=== PATIENT | male | born 1970 | race Caucasian/White ===

== ENCOUNTER 2017-06-13 22:18 | Emergency (ER) | payer BC ==
[2017-06-13] MEDS ORDERED: HYDROmorphone 2 MG/ML Syringe SUBCUT ONE (22:29)
[2017-06-13] MEDS ORDERED: Morphine 15 MG Tab ONE (22:30)
--- NOTE | 2017-06-13 22:34 | EDM.PDOC ---
ED HPI GENERAL MEDICAL PROBLEM - General Chief Complaint: Upper Extremity Injury/Pain Stated Complaint: RIGHT ARM PAIN Time Seen by Provider: 06/13/17 22:25 Source of Information: Reports: Patient, Family History Limitations: Reports: No Limitations - History of Present Illness INITIAL COMMENTS - FREE TEXT/NARRATIVE: According to patient he has had right rotator cuff re;pair done on 06/11/[address] [facility] by Dr. Mcneill. Apparently he has had pain in his shoulder since then . he has been taking vicodin 1-2 tablets every 6hrs as his pain is not better. He rates his pain at 9/10 since the surgery. His shoulder hurts when he is sitting or lying down and is constant. No excessive swelling or redness around the shoulder. As he has taken 17 pills and has only 3 more pain pills, his spouse did get him in for stronger pain medication and evaluation. No fever or chills. No nausea , vomiting or weakness. - Related Data Allergies Allergy/AdvReac Type Severity Reaction Status Date / Time No Known Allergies Allergy Verified 06/13/17 22:19 Home Meds: Home Meds Acetaminophen/oxyCODONE [Percocet 325-5 MG] 2 each PO Q4HR 06/13/17 [History] Review of Systems - Review of Systems Review Of Systems: See Below Constitutional: Denies: Chills, Fever Eyes: Denies: Blurred Vision Ears: Denies: Dizziness Nose: Denies: Congestion Mouth/Throat: Denies: Painful Swallowing Respiratory: Denies: Cough, Sputum Cardiovascular: Denies: Chest Pain, Syncope GI/Abdominal: Denies: Abdominal Pain, Nausea, Vomiting Musculoskeletal: Reports: Shoulder Pain (rigth ). Denies: Back Pain, Foot Pain Skin: Denies: Pruritis, Rash Neurological: Denies: Dizziness, Headache, Numbness, Tingling, Weakness ED EXAM, GENERAL - Physical Exam Exam: See Below Exam Limited By: No Limitations General Appearance: Alert, WD/WN, Mild Distress Eye Exam: Bilateral Eye: EOMI, PERRL Ears: Normal External Exam, Normal Canal, Hearing Grossly Normal, Normal TMs Ear Exam: Bilateral Ear: Auricle Normal, Canal Normal, TM normal Nose: Normal Inspection, Normal Mucosa, No Blood Throat/Mouth: Normal Inspection, Normal Lips, Normal Teeth, Normal Gums, Normal Oropharynx, Normal Voice, No Airway Compromise Head: Atraumatic, Normocephalic Neck: Normal Inspection, Supple, Non-Tender, Full Range of Motion Respiratory/Chest: No Respiratory Distress, Lungs Clear, Normal Breath Sounds, No Accessory Muscle Use, Chest Non-Tender Cardiovascular: Normal Peripheral Pulses, Regular Rate, Rhythm, No Edema, No Gallop, No JVD, No Murmur, No Rub Extremities: Other (Right shoulder: tehre is very minimal swellling around the shoulder joint, there is no erythema, mild warmth to touch. very tender to palp; ation of mary shoulder. The right arm is fixed in splint. Able to move his fingers without discomfort.) Course - Vital Signs Text/Narrative:: I does have some swelling of the right shoulder which probably is secondary to inflammation. his CBC done today does show normal white count. He did receive dilaudid 2mg subcutaneous in the emergency room, which should help with pain tonight. I have advised jesus's to call Dr. Mcneill's office in the morning for pain management, and if any further workup necessary. Last Recorded V/S: Last Vital Signs Temp 95.9 F 06/13/17 22:41 Pulse 58 L 06/13/17 22:41 Resp 18 06/13/17 22:41 BP 115/72 06/13/17 22:41 Pulse Ox 100 06/13/17 22:41 - Orders/Labs/Meds Labs: Laboratory Tests 06/13/17 Range/Units 22:41 WBC 9.8 (4.0-11.0) K/uL RBC 4.75 (4.50-6.50) M/uL Hgb 14.6 (13.0-18.0) g/dL Hct 41.8 (40.0-54.0) % MCV 88 (76-96) fL MCH 30.7 (27.0-32.0) pg MCHC 34.9 (31.0-35.0) g/dL RDW 12.8 (11.0-16.0) % Plt Count 250 (150-400) K/uL MPV 10.3 H (6.0-10.0) fL Neut % (Auto) 53.7 (45.0-70.0) % Lymph % (Auto) 29.5 (20.0-40.0) % [place] % (Auto) 13.9 H (3.0-10.0) % Eos % (Auto) 2.7 (1.0-5.0) % Baso % (Auto) 0.2 (0.0-0.5) % Neut # (Auto) 5.25 (2.00-7.50) K/uL Lymph # (Auto) 2.88 (1.50-4.00) K/uL [place] # (Auto) 1.36 H (0.20-0.80) K/uL Eos # (Auto) 0.26 (0.04-0.40) K/uL Baso # (Auto) 0.02 (0.02-0.10) K/uL Meds: Medications Discontinued Medications Generic Name Dose Route Start Last Admin Trade Name Freq PRN Reason Stop Dose Admin Hydromorphone HCl 2 mg 06/13/17 22:29 06/13/17 22:24 Dilaudid SUBCUT 06/13/17 22:30 2 mg ONETIME ONE Administration Departure - Departure Time of Disposition: 11:00 Disposition: Home, Self-Care 01 Condition: Fair Clinical Impression: Right shoulder pain - Discharge Information Forms: ED Department Discharge Additional Instructions: He does have some swelling of the right shoulder which probably is secondary to inflammation. his CBC done today does show normal white count. He did receive dilaudid 2mg subcutaneous in the emergency room, which should help with pain tonight.I have sent him home on MS contin 15mg to be taken at 12 and repeat in 4 hrs if still in pain. If the pain improve with dilaudid injection advised to hold off on MS Contin. I have advised jesus's to call Dr. Mcneill's office in the morning for pain management, and if any further workup necessary. - Problem List & Annotations (1) Right shoulder pain SNOMED Code(s): 74101750 Code(s): M25.511 - PAIN IN RIGHT SHOULDER Status: Acute - Problem List Review Problem List Initiated/Reviewed/Updated: Yes - Assessment/Plan Assessment:: right shoulder pain Post op s/p rotator cuff repair Plan: He does have some swelling of the right shoulder which probably is secondary to inflammation. his CBC done today does show normal white count. He did receive dilaudid 2mg subcutaneous in the emergency room, which should help with pain tonight.I have sent him home on MS contin 15mg to be taken at 12 and repeat in 4 hrs if still in pain. If the pain improve with dilaudid injection advised to hold off on MS Contin. I have advised jesus's to call Dr. Mcneill's office in the morning for pain management, and if any further workup necessary.
[2017-06-13] MEDS ORDERED: HYDROmorphone 2 MG/ML Syringe IM ONE (23:02)
== END 2017-06-13 23:24 | disposition home or self-care (01) ==
LOC: LB.ED 22:18
DX: M25.511 Pain in right shoulder (principal); Z98.890 Other specified postprocedural states
CPT/HCPCS: 36415; 85025; 96372; 99283; A9270; J1170

== ENCOUNTER 2019-01-05 08:42 | Day surgery (SDC) | payer BC ==
[~2019-01-05 08:42] MED LIST: Metoclopramide 10 MG/2 ML SDV IV PRN; Sodium Chloride 0.9% 1,000 ML IV SCH
[2019-01-05] MEDS ORDERED: Propofol 200 MG/20 ML SDV ONE (11:15)
--- NOTE | 2019-01-05 15:27 | OR ---
DATE OF OPERATION: 01/05/2019 PREOPERATIVE DIAGNOSIS: Family history of colon cancer and personal history of polyps. POSTOPERATIVE DIAGNOSIS: Family history of colon cancer and personal history of polyps. PROCEDURE: Colonoscopy with polypectomy. ANESTHESIA: MAC. ESTIMATED BLOOD LOSS: Minimal. COMPLICATIONS: None. INDICATION FOR THE PROCEDURE: The patient is a 48-year-old male who has a family history of colon cancer in his sister who was less than 50. The patient has also had a colonoscopy approximately 10 years ago and approximately 5 polyps were found at that time. The patient denies any change in bowel habits since that time. DESCRIPTION OF PROCEDURE: Informed consent was obtained from the patient. The patient was taken to the operating room and placed on the table in left lateral decubitus position. Monitored anesthesia care was administered. Digital rectal exam was performed and was normal. Colonoscope then advanced through the anus and directed toward the cecum. Cecum was reached and identified by appendiceal orifice and ileocecal valve. Colonoscope was then slowly withdrawn. He did have a small sessile polyp in the proximal ascending colon which was removed by cold forceps polypectomy. No additional polyps. No areas of ischemia or inflammation. No masses. No diverticula were seen on the way out. The colonoscope was slowly withdrawn. Retroflexion performed in the rectum was also otherwise unremarkable. Colonoscope was then withdrawn. The patient tolerated the procedure well and was brought to recovery room in good condition. FINDINGS: Proximal ascending colon polyp. RECOMMENDATIONS: We will follow up on pathology. Otherwise, would recommend repeat surveillance colonoscopy in 5 years due to family history and personal history of polyps. GUILLERMINA /[id number]
== END 2019-01-05 13:00 | disposition home or self-care (01) ==
LOC: LB.SDS 08:42
PROVIDERS: ATTEND Surgery
DX: Z12.11 Encounter for screening for malignant neoplasm of colon (principal); D12.2 Benign neoplasm of ascending colon; Z86.010 Personal history of colon polyps; Z80.0 Family history of malignant neoplasm of digestive organs; F17.200 Nicotine dependence, unspecified, uncomplicated
CPT/HCPCS: 45380; 88305; J2704; J7030

== ENCOUNTER 2019-07-05 08:19 | Emergency (ER) | payer BC ==
--- NOTE | 2019-07-05 09:09 | PCM.HP.2 ---
H&P History of Present Illness - General Date of Service: 07/05/19 Source of Information: Patient History Limitations: Reports: No Limitations - History of Present Illness Initial Comments - Free Text/Narative: This is a 49yo M here for severe low back injury with lifting. He all of a sudden fell over and unable to stand without pain in the lumbar region. He has not had any back injuries in the past. Patient states he is not in pain when not on his feet and is ok sitting but when he places mild pressure with standing he feels the severe lumbar pain. Onset of Symptoms: Reports: Sudden Duration of Symptoms: Reports: Constant Quality: Reports: Pressure, Sharp Severity: Severe Improves with: Reports: Rest Worsens with: Reports: Other (standing and walking) Associated Symptoms: Reports: No Other Symptoms Bilateral Lower Back Pain Score (Numeric/FACES): 10 - Related Data Allergies/Adverse Reactions: Allergies Allergy/AdvReac Type Severity Reaction Status Date / Time No Known Allergies Allergy Verified 01/05/19 08:59 Home Medications: Home Meds NK [No Known Home Meds] 01/05/19 [History] Past Medical History Gastrointestinal History: Reports: Irritable Bowel Syndrome - Past Surgical History Musculoskeletal Surgical History: Reports: Arthroscopic Knee, Other (See Below) Other Musculoskeletal Surgeries/Procedures:: ligament repair to both knees; right rotator cuff repair Social & Family History - Family History Family Medical History: Noncontributory Oncologic: Reports: Liver, Metastatic - Caffeine Use Caffeine Use: Reports: Coffee H&P Review of Systems - Review of Systems: Review Of Systems: ROS reveals no pertinent complaints other than HPI. Exam - Exam Exam: See Below - Vital Signs Vital Signs: Last Vital Signs Temp 36.6 C 07/05/19 09:03 Pulse 71 07/05/19 09:03 Resp 16 07/05/19 09:03 BP 137/91 H 07/05/19 09:03 Pulse Ox 98 07/05/19 09:03 Weight: 87.09 kg - Exam General: Alert, Oriented, Cooperative HEENT: PERRLA, Conjunctiva Clear, EACs Clear, EOMI Neck: Supple, Trachea Midline Lungs: Clear to Auscultation, Normal Respiratory Effort Cardiovascular: Regular Rate, Regular Rhythm GI/Abdominal Exam: Normal Bowel Sounds, Soft, Non-Tender Back Exam: Paraspinal Tenderness, Vertebral Tenderness Extremities: Normal Inspection, Normal Range of Motion Skin: Warm, Dry, Intact - Problem List (1) Lumbago SNOMED Code(s): 680608583 ICD Code: M54.5 - LOW BACK PAIN Status: Acute Qualifiers: Chronicity: acute Back pain laterality: bilateral Sciatica presence: without sciatica Qualified Code(s): M54.5 - Low back pain (2) Acute lumbar myofascial strain SNOMED Code(s): 699938616, 14365545, 514167535 ICD Code: S39.012A - STRAIN OF MUSCLE, FASCIA AND TENDON OF LOWER BACK, INIT Status: Acute Priority: High Qualifiers: Encounter type: initial encounter Qualified Code(s): S39.012A - Strain of muscle, fascia and tendon of lower back, initial encounter Problem List Initiated/Reviewed/Updated: Yes Orders Last 24hrs: Active Orders 24 hr Category Date Time Status Lumbar Spine wo Cont [CT] Stat Exams 07/05/19 09:05 Ordered Lumbar Spine wo Cont [CT] Stat Exams 07/05/19 09:05 Stop Req Assessment/Plan Comment:: Patient unable to walk. We will send for an emergent MRI at [facility]. MRI report reviewed and consulted Dr. Goodman who is supervisor home restoration service and reviewed the images and discussed plan of care. Patient is non-surgical and will continue supportive and conservative management at this time. F/u in clinic as directed and as needed.
[2019-07-05] MEDS ORDERED: Acetaminophen/HYDROcodone 325-5 MG Tab ONE (09:30)
[2019-07-05] MEDS ORDERED: Acetaminophen/HYDROcodone 325-10 MG Tab PO ONE (09:39)
[2019-07-05] MEDS ORDERED: Acetaminophen/HYDROcodone 325-10 MG Tab ONE (09:46)
[2019-07-05] MEDS ORDERED: diazePAM 5 MG/ML MDV ONE (10:39)
[2019-07-05] MEDS ORDERED: HYDROmorphone 2 MG/ML SDV ONE (10:40)
[2019-07-05] MEDS ORDERED: HYDROmorphone 2 MG/ML Syringe IVPUSH ONE (10:43)
--- NOTE | 2019-07-06 07:41 | CT ---
Date of Service: 07/05/19 Clinical Data: back injury lifting LUMBAR SPINE CT: Multislice axial acquisition from T12 to S3 was performed. Axial images and sagittal and coronal reformations are reviewed. There is slight retrolisthesis of L5 on S1. No acute fracture or dislocation. No lytic or blastic bone lesions. There is degenerative disk disease at multiple levels. There is a small disk protrusion at the L5-S1 level centrally that is slightly eccentric to the left. There is mild facet joint hypertrophy at multiple levels. No significant central or foraminal stenosis. Mild degenerative change in the SI joints bilaterally. No other significant findings. [id number] [facility]
== END 2019-07-05 12:01 | disposition home or self-care (01) ==
LOC: LB.ED 08:19
DX: M54.5 Low back pain (principal); X50.9XXA Other and unspecified overexertion or strenuous movements or postures, initial encounter; W19.XXXA Unspecified fall, initial encounter
CPT/HCPCS: 72131; 99283; A9270; J1170; J3360

== ENCOUNTER 2023-12-08 17:58 | Emergency (ER) | payer OTHER ==
[2023-12-08] MEDS ORDERED: Acetaminophen/HYDROcodone 325-5 MG Tab ONE (18:30)
== END 2023-12-08 19:00 | disposition home or self-care (01) ==
LOC: LB.ED 17:58
DX: S83.92XA Sprain of unspecified site of left knee, initial encounter (principal); F17.210 Nicotine dependence, cigarettes, uncomplicated; W18.30XA Fall on same level, unspecified, initial encounter; X50.0XXA Overexertion from strenuous movement or load, initial encounter; Y93.89 Activity, other specified
CPT/HCPCS: 73562-LT; 99283; A9270-GY